=== PATIENT | female | born 1950 | race Caucasian/White ===

== ENCOUNTER 2016-12-13 13:47 | Emergency (ER) | payer BC, OTHER ==
[~2016-12-13] VITALS: Ht 160 cm; Wt 67.0 kg
[2016-12-13 13:59] VITALS: BP 186/83; PULSE 81; RESP 18; TEMP 97.6; O2SAT 99
[2016-12-13] MEDS ORDERED: FIORINAL2 PO (14:04)
[2016-12-13] MEDS ORDERED: ALPR.25 PO (14:04)
[2016-12-13] MEDS ORDERED: LEVO.1 PO (14:04)
[2016-12-13] MEDS ORDERED: SODIUM CHLOR 0.9% 1000 ML INJ 1,000 ML IV SCH (14:13)
[2016-12-13] MEDS ORDERED: DICYCLOMINE HCL 10 MG CAP PO ONE (14:15)
[2016-12-13] MEDS ORDERED: ONDANSETRON HCL 4 MG/2 ML VIAL IVP ONE (14:15)
[2016-12-13] MEDS ORDERED: SODIUM CHLORIDE 0.9% FLUSH 10 ML FLUSH IV FLUSH PRN (14:15)
--- NOTE | 2016-12-13 14:15 | PD ---
HPI Chief Complaint: GI Complaint Time Seen by Provider: 14:02 Travel History International Travel<30 days: No Contact w/Intl Traveler<30days: No Traveled to known affect area: No History of Present Illness HPI Patient is a 66-year-old female presents emerged nausea vomiting and diarrhea rather acute onset at 2:30 this morning. On review of systems Patient states she's never had something like this in the past. 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 Denies any fever, she states that she has some abdominal cramping on the left side of her abdomen. No fevers, she has not examine her stool and does not know if is been any blood or melena. States was nonbilious nonbloody vomiting. No other sick close contacts. PFSH Past Medical History Diminished Hearing: No Migraines: Yes Thyroid Disease: Yes Influenza Vaccination: No ?: Not Past Surgical History Appendectomy: Yes Hysterectomy: Yes Social History Alcohol Use: Yes Tobacco Use: No Allergies-Medications (Allergen,Severity, Reaction): Coded Allergies: Dilaudid (Verified Allergy, Severe, Nausea/Vomiting, 12/13/16) Reported Meds & Prescriptions Reported Meds & Active Scripts Active Zofran Odt (Ondansetron Odt) 4 Mg Tab 4 Mg SL Q6HR PRN Bentyl (Dicyclomine HCl) 10 Mg Cap 10 Mg PO TID PRN Flagyl (Metronidazole) 500 Mg Tab 500 Mg PO BID 7 Days Cipro (Ciprofloxacin HCl) 500 Mg Tab 500 Mg PO BID 7 Days Reported Xanax (Alprazolam) 0.25 Mg Tab 0.25 Mg PO HS PRN Fiorinal (Butalbital/Aspirin/Caffeine) 50-325-40 Mg Cap 1 Cap PO Q4H PRN Do not exceed 6 capsules/day. Synthroid (Levothyroxine Sodium) 100 Mcg Tab 100 Mcg PO DAILY Review of Systems Except as stated in HPI: all other systems reviewed are Neg Physical Exam Narrative GENERAL: Well developed well-nourished in no obvious distress, smiling. Skin: Warm and dry, no bruising the laceration on her abdomen. HEAD: Atraumatic. Normocephalic. EYES: Pupils equal and round. No scleral icterus. No injection or drainage. ENT: No nasal bleeding or discharge. Mucous membranes pink and moist. NECK: Trachea midline. No JVD. CARDIOVASCULAR: Regular rate and rhythm. No murmur appreciated. RESPIRATORY: No accessory muscle use. Clear to auscultation. Breath sounds equal bilaterally. GASTROINTESTINAL: Abdomen soft, non-tender, nondistended. Hepatic and splenic margins not palpable. No rebound no percussive tenderness. MUSCULOSKELETAL: No obvious deformities. No clubbing. No cyanosis. No edema. NEUROLOGICAL: Awake and alert. No obvious cranial nerve deficits. Motor grossly within normal limits. Normal speech. PSYCHIATRIC: Appropriate mood and affect; insight and judgment normal. Data Data Last Documented VS Vital Signs Date Time Temp Pulse Resp B/P Pulse Ox O2 Delivery O2 Flow Rate FiO2 12/13/16 14:22 72 18 166/79 98 Room Air 12/13/16 13:59 97.6 Orders Complete Blood Count With Diff (12/13/16 14:13) Comprehensive Metabolic Panel (12/13/16 14:13) Lipase (12/13/16 14:13) Iv Access Insert/Monitor (12/13/16 14:13) Ecg Monitoring (12/13/16 14:13) Oximetry (12/13/16 14:13) Ondansetron Inj (Zofran Inj) (12/13/16 14:15) Sodium Chlor 0.9% 1000 Ml Inj (Ns 1000 M (12/13/16 14:13) Sodium Chloride 0.9% Flush (Ns Flush) (12/13/16 14:15) Dicyclomine (Bentyl) (12/13/16 14:15) Urinalysis - C+S If Indicated (12/13/16 14:29) Abdomen, Kub Only (12/13/16 ) Labs Laboratory Tests Test 12/13/16 12/13/16 14:00 14:40 White Blood Count 6.1 TH/MM3 Red Blood Count 4.47 MIL/MM3 Hemoglobin 13.4 GM/DL Hematocrit 39.4 % Mean Corpuscular Volume 88.2 FL Mean Corpuscular Hemoglobin 30.0 PG Mean Corpuscular Hemoglobin 34.1 % Concent Red Cell Distribution Width 12.2 % Platelet Count 291 TH/MM3 Mean Platelet Volume 8.0 FL Neutrophils (%) (Auto) 84.8 % Lymphocytes (%) (Auto) 10.8 % Monocytes (%) (Auto) 3.6 % Eosinophils (%) (Auto) 0.1 % Basophils (%) (Auto) 0.7 % Neutrophils # (Auto) 5.2 TH/MM3 Lymphocytes # (Auto) 0.7 TH/MM3 Monocytes # (Auto) 0.2 TH/MM3 Eosinophils # (Auto) 0.0 TH/MM3 Basophils # (Auto) 0.0 TH/MM3 CBC Comment DIFF FINAL Differential Comment Sodium Level 139 MEQ/L Potassium Level 4.0 MEQ/L Chloride Level 107 MEQ/L Carbon Dioxide Level 21.2 MEQ/L Anion Gap 11 MEQ/L Blood Urea Nitrogen 18 MG/DL Creatinine 0.81 MG/DL Estimat Glomerular Filtration 71 ML/MIN Rate Random Glucose 115 MG/DL Calcium Level 9.5 MG/DL Total Bilirubin 0.4 MG/DL Aspartate Amino Transf 30 U/L (AST/SGOT) Alanine Aminotransferase 22 U/L (ALT/SGPT) Alkaline Phosphatase 67 U/L Total Protein 7.5 GM/DL Albumin 4.1 GM/DL Lipase 102 U/L Urine Collection Type CLEAN CATCH Urine Color YELLOW Urine Turbidity CLEAR Urine pH 7.5 Urine Specific [place] 1.020 Urine Protein TRACE mg/dL Urine Glucose (UA) NEG mg/dL Urine Ketones 80 OR GREATER mg/dL Urine Occult Blood LARGE Urine Nitrite NEG Urine Bilirubin NEG Urine Leukocyte Esterase NEG Urine RBC 10-14 /hpf Microscopic Urinalysis Comment CULT NOT INDICATED MDM Medical Decision Making Medical Screen Exam Complete: Yes Emergency Medical Condition: Yes Differential Diagnosis Gastritis, gastroenteritis, diverticulitis, dehydration, urinary tract infection , small bowel obstruction seems unlikely. Narrative Course Patient roomed emerged Department, quite pleasant smiling, abdomen really is benign, she does have some abdominal cramping on the left side of her abdomen but no tenderness no rebound no percussive tenderness. Bowel sounds are normal active. Basic labs including CBC CMP and lipase are negative, patient does have minimal of hematuria, she states that this is chronic for her and she's had a cystoscopy before and was told by her urologist that she "is just one of those people that has chronic hematuria". Patient has been talking with her relative who wonders if she has an obstruction, KUB was obtained to this and which does show some formed stool in the ascending colon but MG descending colon a nonobstructive bowel gas pattern. Patient may have early diverticulitis but I think CAT scan at this point can reasonably be deferred for presumptive treatment of diverticulitis versus gastroenteritis. Patient is agreeable. Discussed return to ED criteria for consideration for CAT scan follow-up with a primary care physician and symptomatic management home. Push by mouth fluids. Diagnosis Primary Impression: N&V (nausea and vomiting) Additional Impression: Diarrhea Med/Other Pt SpecificInfo: Prescription(s) given Scripts Ondansetron Odt (Zofran Odt)4 Mg Tab4 Mg SL Q6HR PRN (Nausea/Vomiting) #30 TAB Ref 0 Prov:Cruz Wayne MD 12/13/16 Dicyclomine (Bentyl)10 Mg Cap10 Mg PO TID PRN (ABDOMINAL CRAMPING) #25 CAP Ref 0 Prov:Cruz Wayne MD 12/13/16 Metronidazole (Flagyl)500 Mg Fnx866 Mg PO BID 7 Days Ref 0 Prov:Cruz Wayne MD 12/13/16 Ciprofloxacin (Cipro)500 Mg Hum153 Mg PO BID 7 Days Ref 0 Prov:Cruz Wayne MD 12/13/16 Disposition: 01 DISCHARGE HOME Condition: Stable Cruz Wayne MD Dec 13, 2016 14:15
[2016-12-13 14:22] VITALS: BP 166/79; PULSE 72; RESP 18; O2SAT 98
[2016-12-13 14:25] LABS: AUTOMATED NEUTROPHIL # 5.2 TH/MM3 (1.8-7.7); BASOPHIL % 0.7 % (0.0-2.0); EOSINOPHIL % 0.1 % (0.0-4.0); HEMATOCRIT 39.4 % (35.0-46.0); LYMPH % 10.8 % (9.0-44.0); LYMPHOCYTE # 0.7 TH/MM3 (1.0-4.8); MEAN CELL VOLUME 88.2 FL (80.0-100.0); MEAN CORPUSCULAR HGB CONC 34.1 % (32.0-36.0); MONO % 3.6 % (0.0-8.0); NEUT % 84.8 % (16.0-70.0); PLATELET COUNT 291 TH/MM3 (150-450); RED BLOOD COUNT 4.47 MIL/MM3 (4.00-5.30); RED CELL DISTRIBUTION WIDTH 12.2 % (11.6-17.2); WHITE BLOOD COUNT 6.1 TH/MM3 (4.0-11.0)
[2016-12-13 14:26] LABS: HEMO FLAGS DIFF FINAL
[2016-12-13 14:33] LABS: CHLORIDE 107 MEQ/L (98-107); SODIUM (NA) 139 MEQ/L (136-145)
[2016-12-13 14:37] LABS: ANION GAP 11 MEQ/L (5-15); BICARBONATE 21.2 MEQ/L (21.0-32.0)
[2016-12-13 14:38] LABS: BLOOD UREA NITROGEN 18 MG/DL (7-18)
[2016-12-13 14:40] LABS: ALT (GPT) 22 U/L (10-53); AST (GOT) 30 U/L (15-37); GLOMERULAR FILTRATION RATE 71 ML/MIN (>89)
[2016-12-13 14:42] LABS: TOTAL BILIRUBIN ADULT 0.4 MG/DL (0.2-1.0)
[2016-12-13 14:43] LABS: ALKALINE PHOSPHATASE 67 U/L (45-117)
[2016-12-13 14:53] LABS: BLOOD, URINE LARGE (NEG); GLUCOSE,URINE NEG (NEG); NITRITE,URINE NEG (NEG); PH, URINE 7.5 (5.0-8.5)
[2016-12-13 14:56] LABS: KETONE, URINE 80 OR GREATER mg/dL (NEG); METHOD OF COLLECTION CLEAN CATCH
[2016-12-13 14:57] LABS: COMMENT (UR) CULT NOT INDICATED; CULTURE IF INDICATED CULT NOT INDICATED; URINE COLOR YELLOW (YELLW/STRAW)
--- NOTE | 2016-12-13 16:02 | RADRPT ---
EXAM DATE/TIME: 12/13/2016 15:32 [facility] COMPARISON: No previous studies available for comparison. INDICATIONS : Nausea, vomiting, and diarrhea with left upper quadrant abdominal pain since 0230 hours this morning. MEDICAL HISTORY : Cyst(s): ovarian, breast, abdomen. SURGICAL HISTORY : Hysterectomy. Appendectomy. ENCOUNTER: Initial ACUITY: 1 day PAIN SCORE: 0/10 LOCATION: Left upper quadrant FINDINGS: The bowel gas is nonspecific. There are no signs of obstruction or free air for technique. No defini te calcified stones are identified for technique. Moderate stool is present throughout the colon. CONCLUSION: Unremarkable study except for stool. Aylin Maciel MD on December 13, 2016 at 16:00 Board Certified Radiologist. This report was verified electronically.
[2016-12-13] MEDS ORDERED: METR-1 PO (16:07)
[2016-12-13] MEDS ORDERED: ZOFR4TAB3 SL (16:07)
[2016-12-13] MEDS ORDERED: CIPR-9 PO (16:07)
[2016-12-13] MEDS ORDERED: DICY10 PO (16:07)
== END 2016-12-13 16:17 | disposition home or self-care (01) ==
LOC: PHED 13:47
DX: R11.2 Nausea with vomiting, unspecified (principal); R19.7 Diarrhea, unspecified
CPT/HCPCS: 74000; 80053; 81001; 83690; 85025; 96361; 96374; 99284; J2405; J7030